=== PATIENT | male | born 1950 | race Two or more races ===

== ENCOUNTER → 2019-08-08 | Outpatient (CLI) | payer OTHER | END | disposition home or self-care (01) | LOC: TOM 11:00 | DX: G45.8 Other transient cerebral ischemic attacks and related syndromes (principal) ==

== ENCOUNTER 2020-12-27 13:38 | Outpatient (CLI) | payer OTHER | END 2020-12-27 13:52 | disposition home or self-care (01) | LOC: MRI 13:38 | PROVIDERS: ATTEND Psychiatry & Neurology Neurology | DX: I67.9 Cerebrovascular disease, unspecified (principal) | CPT/HCPCS: 70551 ==

== ENCOUNTER 2022-01-04 09:40 | Outpatient (CLI) | payer OTHER | END 2022-01-04 09:47 | disposition home or self-care (01) | LOC: SONOGRAMA 09:40 | PROVIDERS: ATTEND Internal Medicine Endocrinology, Diabetes & Metabolism | DX: E04.2 Nontoxic multinodular goiter (principal); R59.0 Localized enlarged lymph nodes; R94.5 Abnormal results of liver function studies; K76.0 Fatty (change of) liver, not elsewhere classified ==

== ENCOUNTER 2022-01-18 13:51 | Outpatient (CLI) | payer OTHER | END 2022-01-18 13:52 | disposition home or self-care (01) | LOC: NUCLEAR 13:51 | PROVIDERS: ATTEND Internal Medicine Endocrinology, Diabetes & Metabolism | DX: Z13.820 Encounter for screening for osteoporosis (principal); M85.89 Other specified disorders of bone density and structure, multiple sites ==

== ENCOUNTER 2022-07-28 11:39 | Outpatient (CLI) | payer OTHER | END 2022-07-28 11:41 | disposition home or self-care (01) | LOC: LAB 11:39 | PROVIDERS: ATTEND Radiology Diagnostic Radiology | DX: R31.0 Gross hematuria (principal) ==

== ENCOUNTER 2022-07-31 10:20 | Outpatient (CLI) | payer OTHER | END 2022-07-31 10:37 | disposition home or self-care (01) | LOC: TOM 10:20 | PROVIDERS: ATTEND Urology | DX: R31.0 Gross hematuria (principal) | CPT/HCPCS: 74177; Q9965 ==

== ENCOUNTER 2024-02-12 15:32 | Emergency (ER) | payer OTHER ==
[~2024-02-12] VITALS: Ht 177.8 cm; Wt 90.7 kg
[2024-02-12] MEDS ORDERED: LEVOTHYROXINE25 MCG (15:35)
[2024-02-12] MEDS ORDERED: HUMALOG100 UNIT/2 (15:35)
[2024-02-12] MEDS ORDERED: COZAAR50 MG (15:35)
[2024-02-12] MEDS ORDERED: ONDANSETRON HCL 2 MG/ML VIAL IV ONE (16:30)
[2024-02-12] MEDS ORDERED: FAMOtidine 10 MG/ML (4ML VIAL) IV ONE (16:30)
[2024-02-12] MEDS ORDERED: 0.9 % SODIUM CHLORIDE 1,000 ML IV ONE (16:45)
[2024-02-12 17:18] LABS: HEMATOCRIT 40.4 % (39.0-48.0); HEMOGLOBIN 13.8 g/dL (13-16.00); MEAN CELL VOLUME 82.9 fL (80.0-100.00); MEAN CORPUSCULAR HEMOGLOBIN 28.3 pg (27.00-32.0); MEAN CORPUSCULAR HGB CONC 34.1 g/dl (32.0-36.0); PLATELET COUNT 292 K/uL (150-450); RED BLOOD COUNT 4.87 M/uL (4.00-6.00); RED CELL DISTRIBUTION WIDTH 14.2 % (11.5-14.5)
[2024-02-12 17:45] LABS: ALBUMIN 2.3 gm/dL (3.4-5.0); BILIRUBIN TOTAL 0.55 mg/dL (0.3-1.2); CALCIUM 9.3 mg/dL (8.5-10.1); CREATININE SERUM 1.69 mg/dL (0.70-1.30); GFR 40.2; GLOBULINA 4.2 G/DL (2.4-3.5); POTASSIUM 4.88 mEq/L (3.5-5.1); TOTAL PROTEIN 6.5 gm/dL (6.4-8.2)
[2024-02-12] MEDS ORDERED: TAMSULOSIN HCL 0.4 MG CAP PO ONE (22:00)
[2024-02-12 22:23] LABS: URINE APPEARANCE Clear; URINE BILIRRUBIN Negative (NEGATIVE); URINE BLOOD Moderate; URINE COLOR Yellow; URINE GLUCOSE Negative (NEGATIVE); URINE KETONE Negative (NEGATIVE); URINE LEUKOCYTE Small; URINE NITRATE Negative; URINE PROTEIN Negative (NEGATIVE); URINE UROBILINOGEN 0.2 E.U./dl
[2024-02-12 22:27] LABS: URINE BACTERIA 163.7 uL (0.0-1933); URINE EPITHELIAL CELLS 21.1 uL (0.0-38.8); URINE RBC 686.4 uL (0.0-20.8); URINE WBC 71.1 uL (0.0-23.2)
[2024-02-12 22:36] LABS: URINE CAST 0.61 uL (0.0-1.40)
[2024-02-12] MEDS ORDERED: BACTRIM DS TAB1 EACH PO (23:09)
== END 2024-02-12 23:16 | disposition home or self-care (01) ==
LOC: ER 15:32
PROVIDERS: General Practice
DX: N39.0 Urinary tract infection, site not specified (principal); R11.2 Nausea with vomiting, unspecified; R19.7 Diarrhea, unspecified; R10.9 Unspecified abdominal pain; I10 Essential (primary) hypertension; E03.8 Other specified hypothyroidism; E11.9 Type 2 diabetes mellitus without complications; Z79.4 Long term (current) use of insulin
CPT/HCPCS: 36415; 74177; 96365; 96366; 99284; J7030; Q9965